=== PATIENT | female | born 2000 | race Caucasian/White ===

== ENCOUNTER 2023-05-20 14:52 | Emergency (ER) | payer MEDICAID ==
[~2023-05-20] VITALS: Ht 160 cm; Wt 110.4 kg
[2023-05-20 16:01] VITALS: BP 139/79; PULSE 84; RESP 16; O2SAT 99
[2023-05-20 16:16] LABS: Urine Bacteria MANY /hpf (None Seen); Urine Blood Negative /uL (Negative); Urine Clarity Clear (Clear); Urine Color Colorless (Yellow); Urine Protein, UAD Negative (Negative); Urine Urobilinogen Normal (Negative); Urine WBC 2 /hpf (0 - 5); Urine pH 6.5 (5.0-8.0)
[2023-05-20] MEDS ORDERED: IBUP-1456 PO (17:25)
[2023-05-20 17:34] VITALS: TEMP 98.3
[2023-05-20] MEDS: IBUPROFEN 800 MG TAB PO ONE (17:34)
== END 2023-05-20 17:41 | disposition home or self-care (01) ==
LOC: ER 14:52
DX: R10.2 Pelvic and perineal pain (principal); Z79.1 Long term (current) use of non-steroidal anti-inflammatories (NSAID); Z88.1 Allergy status to other antibiotic agents; Z88.8 Allergy status to other drugs, medicaments and biological substances
CPT/HCPCS: 76856; 81001; 81025